=== PATIENT | male | born 1980 | race Two or more races ===

== ENCOUNTER 2022-01-11 18:16 | Emergency (ER) | payer BC, OTHER ==
[~2022-01-11] VITALS: Ht 167.6 cm; Wt 97.8 kg
[2022-01-11] MEDS ORDERED: EPINEPHrine HCL 1 MG/1 ML AMP SC ONE ×2 (18:45)
[2022-01-11] MEDS ORDERED: methylPREDNISolone SOD SUCC 125 MG/2 ML VL IV ONE ×2 (18:45)
[2022-01-11] MEDS ORDERED: diphenhdrAMINE HCL 50 MG/1 ML VL IV ONE ×2 (18:45)
[2022-01-11 19:22] LABS: Basophils # (auto) 0 10 ^3/uL (0-0.2); Basophils % (auto) 0.8 % (0.0-2.0); Eosinophils # (auto) 0.2 10 ^3/uL (0-0.8); Eosinophils % (auto) 3.1 % (0.0-7.0); Hematocrit 46.4 % (41.0-53.0); Lymphocytes # (auto) 1.2 10 ^3/uL (0.4-5.4); Lymphocytes % (auto) 19.4 % (10.0-50.0); Mean Corpuscular Hemoglobin 30.2 pg (28.0-32.0); Mean Corpuscular Hgb Conc. 34.5 g/dL (32.0-36.0); Mean Corpuscular Volume 87.5 fL (80.0-100.0); Monocytes # (auto) 0.4 10 ^3/uL (0-1.3); Monocytes % (auto) 6.7 % (0.0-12.0); Neutrophils # (auto) 4.4 10 ^3/uL (1.6-8.6); White Blood Cell 6.2 10^3/uL (4.4-10.8)
[2022-01-11 19:38] LABS: Calcium 8.9 mg/dL (8.5-10.1); Potassium 3.9 mmol/L (3.5-5.1)
[2022-01-11 19:49] LABS: BUN/Creatinine Ratio 10.8; Bilirubin, Total 0.6 mg/dL (0.2-1.0); Total Protein 7.3 g/dL (6.4-8.2)
[2022-01-11] MEDS ORDERED: METH4PAK PO (20:40)
[2022-01-11] MEDS ORDERED: EPIN0.1I11 IJ (20:41)
[2022-01-11 21:06] VITALS: BP 128/78
== END 2022-01-11 21:09 | disposition home or self-care (01) ==
LOC: ER 18:16
DX: T78.40XA Allergy, unspecified, initial encounter (principal); T78.1XXA Other adverse food reactions, not elsewhere classified, initial encounter; Z88.0 Allergy status to penicillin; Z91.010 Allergy to peanuts; X58.XXXA Exposure to other specified factors, initial encounter
CPT/HCPCS: 36415; 80053; 84484; 85025; 96372; 96374; 96375; 99284; J0171; J1200; J2930